=== PATIENT | male | born 1990 | race Caucasian/White ===

== ENCOUNTER 2019-09-02 18:11 | Emergency (ER) | payer OTHER ==
[~2019-09-02] VITALS: Ht 177.8 cm; Wt 72.6 kg
--- NOTE | 2019-09-02 18:20 | NUR ---
hitesh, from home, c/o headache x 12 hrs. Patient a/ox4, breathing even and unlabored, no sob noted, needs attended, kept comfortable.
--- NOTE | 2019-09-02 18:45 | NUR ---
PT IV LINE ESTABLISHED BLOOD DRAWN AND SENT TO LAB.
[2019-09-02] MEDS ORDERED: diphenhydrAMINE HCL 50 MG/ML VIAL ONE (18:47)
[2019-09-02] MEDS ORDERED: METOCLOPRAMIDE HCL 10 MG/2 ML VIAL ONE (18:47)
[2019-09-02 18:52] LABS: BASOPHILS % (AUTO) 0.5 % (0.0-2.0); EOSINOPHILS % (AUTO) 2.1 % (0.0-6.0); HEMATOCRIT 47 % (39-51); LYMPHOCYTES # (AUTO) 1.7 /CMM (0.8-4.8); LYMPHOCYTES % (AUTO) 24.8 % (20.0-44.0); MEAN CORPUSCULAR HGB CONC 34 g/dl (31.0-36.0); MEAN CORPUSCULAR VOLUME 88 fL (80-96); MONOCYTES # (AUTO) 0.5 /CMM (0.1-1.30); MONOCYTES % (AUTO) 7.7 % (2.0-12.0); NEUTROPHILS # (AUTO) 4.6 /CMM (1.8-8.9); NEUTROPHILS % (AUTO) 64.9 % (43.0-81.0); PLATELET COUNT (AUTO) 213 /CMM (150-450); RED BLOOD CELL COUNT(AUTO) 5.33 MIL/uL (4.5-6.0)
[2019-09-02 18:59] LABS: CREATININE 0.9 mg/dL (0.6-1.3); POTASSIUM 3.8 mmol/L (3.5-5.1)
[2019-09-02] MEDS ORDERED: diphenhydrAMINE HCL 50 MG/ML VIAL IV ONE (19:00)
[2019-09-02] MEDS ORDERED: METOCLOPRAMIDE HCL 10 MG/2 ML VIAL IV ONE (19:00)
[2019-09-02] MEDS ORDERED: IV NS 0.9% 1,000 ML BAG IV ONE (19:00)
--- NOTE | 2019-09-02 21:01 | NUR ---
IV removed. Catheter intact and site benign. Pressure and 4x4 applied to site. No bleeding noted.
--- NOTE | 2019-09-02 21:11 | NUR ---
Patient discharged to home in stable condition. Written and verbal after care instructions given. Patient verbalizes understanding of instruction. Pt ambulated with steady gait, vss.
[2019-09-02 21:12] VITALS: BP 129/81
== END 2019-09-02 21:12 | disposition home or self-care (01) ==
LOC: ER 18:17
DX: R51 Headache (principal)
CPT/HCPCS: 36415; 70450; 80048; 85025; 96374; 96375; 99284; A4216; J1200; J2765; J7030

== ENCOUNTER 2019-09-23 17:30 | Emergency (ER) | payer OTHER ==
[~2019-09-23] VITALS: Ht 172.7 cm; Wt 83.9 kg
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
--- NOTE | 2019-09-23 18:17 | NUR ---
PT SEEN AND EXAMINED BY JOSEFINA RAYMUNDO.
[2019-09-23] MEDS ORDERED: KETOROLAC TROMETHAMINE INJ 30 MG/ML VIAL ONE (18:26)
[2019-09-23] MEDS ORDERED: ACETAMINOPHEN ES 500 MG TABLET ONE (18:27)
[2019-09-23] MEDS ORDERED: LIDOCAINE 5% (PATCH) 1 EA PATCH TP SCH (18:30)
[2019-09-23] MEDS ORDERED: KETOROLAC TROMETHAMINE INJ 60 MG/2 ML VIAL IM ONE (18:30)
[2019-09-23] MEDS ORDERED: ACETAMINOPHEN 325 MG TABLET PO ONE (18:30)
--- NOTE | 2019-09-23 18:43 | NUR ---
Patient discharged to home in stable condition. Written and verbal after care instructions given. Patient verbalizes understanding of instruction.
[2019-09-23 18:44] VITALS: BP 118/68
== END 2019-09-23 18:44 | disposition home or self-care (01) ==
LOC: ER 17:31
DX: M62.830 Muscle spasm of back (principal); G89.29 Other chronic pain; F20.9 Schizophrenia, unspecified; W06.XXXA Fall from bed, initial encounter; Y93.89 Activity, other specified; Y92.89 Other specified places as the place of occurrence of the external cause; Y99.8 Other external cause status
CPT/HCPCS: 96372; 99283; J1885

== ENCOUNTER 2019-10-18 18:10 | Emergency (ER) | payer OTHER ==
[~2019-10-18] VITALS: Ht 170.2 cm; Wt 64.4 kg
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
--- NOTE | 2019-10-18 18:18 | NUR ---
SEEN AND EXAMINED BY EBER PACHECO
--- NOTE | 2019-10-18 18:34 | NUR ---
URINE SPECIMEN COLLECTED AND SENT TO LAB.
[2019-10-18] MEDS ORDERED: ACETAMINOPHEN ES 500 MG TABLET ONE (18:36)
[2019-10-18 18:39] LABS: APPEARANCE,URINE Clear (CLEAR); BILIRUBIN,URINE Negative (NEGATIVE); BLOOD, URINE Negative Ery/uL (NEGATIVE); COLOR,URINE Yellow (YELLOW); KETONES,URINE Negative (NEGATIVE); LEUKOCYTE ESTERASE ,URINE Negative (NEGATIVE); NITRITE, URINE Negative (NEGATIVE); PH,URINE 7.5 (5.0-8.0); PROTEIN,URINE Negative (NEGATIVE); UGLUCOSE Negative (NEGATIVE); UROBILINOGEN,URINE 0.2 EU/dL (0.2)
--- NOTE | 2019-10-18 18:45 | NUR ---
IV LINE ESTABLISHED BLOOD DRAWN AND SENT TO LAB.
[2019-10-18] MEDS ORDERED: DIPHENOXYLATE HCL/ATROP SULF 1 UDTAB TABLET ONE (18:50)
[2019-10-18 18:57] LABS: BASOPHILS % (AUTO) 0.6 % (0.0-2.0); EOSINOPHILS % (AUTO) 1.1 % (0.0-6.0); HEMATOCRIT 45 % (39-51); HEMOGLOBIN 15.7 g/dL (13.5-17.5); LYMPHOCYTES # (AUTO) 1.8 /CMM (0.8-4.8); LYMPHOCYTES % (AUTO) 27.4 % (20.0-44.0); MEAN CORPUSCULAR HGB CONC 35 g/dl (31.0-36.0); MEAN CORPUSCULAR VOLUME 89 fL (80-96); MONOCYTES # (AUTO) 0.7 /CMM (0.1-1.30); NEUTROPHILS # (AUTO) 3.9 /CMM (1.8-8.9); NEUTROPHILS % (AUTO) 59.9 % (43.0-81.0); PLATELET COUNT (AUTO) 230 /CMM (150-450); RED BLOOD CELL COUNT(AUTO) 5.07 MIL/uL (4.5-6.0); WHITE BLOOD COUNT (AUTO) 6.5 K/uL (4.3-11.0)
[2019-10-18] MEDS ORDERED: ACETAMINOPHEN ES 500 MG TABLET PO ONE (19:00)
[2019-10-18] MEDS ORDERED: DIPHENOXYLATE HCL/ATROP SULF 1 UDTAB TABLET PO ONE (19:00)
[2019-10-18] MEDS ORDERED: IV NS 0.9% 1,000 ML BAG IV ONE (19:00)
[2019-10-18 19:06] LABS: CALCIUM, SERUM 8.9 mg/dL (8.5-10.1); POTASSIUM 3.5 mmol/L (3.5-5.1)
[2019-10-18 19:12] LABS: ALBUMIN 4.1 g/dL (3.4-5.0); BILIRUBIN,TOTAL 0.6 mg/dL (0.2-1.0)
--- NOTE | 2019-10-18 19:20 | NUR ---
TOOK OVER PT CARE. PT AAOX4. PT RESTING IN BED. RR EVEN AND UNLABORED. PLACED ON MONITOR AND PULSE OX. VSS. AWAITING US.
--- NOTE | 2019-10-18 19:24 | NUR ---
US AT BEDSIDE.
--- NOTE | 2019-10-18 19:50 | NUR ---
IV removed. Catheter intact and site benign. Pressure and 4x4 applied to site. No bleeding noted.
--- NOTE | 2019-10-18 19:50 | NUR ---
PA SPEAKING TO PT. PT WILL BE DISCHARGED.
--- NOTE | 2019-10-18 19:58 | NUR ---
Patient discharged to home in stable condition. Written and verbal after care instructions given. Patient verbalizes understanding of instruction and RX. Pt ambulated with steady gait. vss. No acute distress noted.
[2019-10-18 20:04] VITALS: BP 121/71
== END 2019-10-18 20:05 | disposition home or self-care (01) ==
LOC: ER 18:12
DX: K60.2 Anal fissure, unspecified (principal); R10.30 Lower abdominal pain, unspecified; N43.2 Other hydrocele; I86.1 Scrotal varices; R19.7 Diarrhea, unspecified; Z60.2 Problems related to living alone
CPT/HCPCS: 36415; 76870; 80053; 81001; 85025; 96360; 99284; J7030; 81000-TC

== ENCOUNTER 2020-02-04 16:54 | Emergency (ER) | payer OTHER ==
[~2020-02-04] VITALS: Ht 167.6 cm; Wt 62.6 kg
--- NOTE | 2020-02-04 17:00 | NUR ---
ER BED 11 PT BIBRA WITH C/O WEAKNESS. VS CHECKED AWAITING MD COLLAZO.
[2020-02-04] MEDS ORDERED: IV NS 0.9% 1,000 ML BAG IV ONE (17:30)
[2020-02-04 17:36] LABS: BASOPHILS % (AUTO) 0.2 % (0.0-2.0); EOSINOPHILS % (AUTO) 0.6 % (0.0-6.0); HEMATOCRIT 47 % (39-51); HEMOGLOBIN 16.1 g/dL (13.5-17.5); LYMPHOCYTES # (AUTO) 1.4 /CMM (0.8-4.8); LYMPHOCYTES % (AUTO) 17.7 % (20.0-44.0); MEAN CORPUSCULAR HGB CONC 34 g/dl (31.0-36.0); MEAN CORPUSCULAR VOLUME 89 fL (80-96); MONOCYTES # (AUTO) 0.6 /CMM (0.1-1.30); MONOCYTES % (AUTO) 7.4 % (2.0-12.0); NEUTROPHILS # (AUTO) 5.8 /CMM (1.8-8.9); NEUTROPHILS % (AUTO) 74.1 % (43.0-81.0); PLATELET COUNT (AUTO) 228 /CMM (150-450); RED BLOOD CELL COUNT(AUTO) 5.27 MIL/uL (4.5-6.0); WHITE BLOOD COUNT (AUTO) 7.8 K/uL (4.3-11.0)
[2020-02-04 17:56] LABS: ALBUMIN 4.7 g/dL (3.4-5.0); BILIRUBIN,DIRECT 0.2 mg/dL (0.0-0.2); BILIRUBIN,TOTAL 1.2 mg/dL (0.2-1.0); CREATININE 0.9 mg/dL (0.6-1.3)
--- NOTE | 2020-02-04 18:27 | NUR ---
PT WAS PROVIDED WITH A CAM BOOT FOR HIS R LEG AND CANE PER [employer]. TEACHING PROVIDED FOR USE OF CANE AND CAM BOOT WELL CAM BOOT APPLICATION.
--- NOTE | 2020-02-04 18:42 | NUR ---
DC Patient discharged to home in stable condition. Written and verbal after care instructions given. Patient verbalizes understanding of instruction. pt provided with a bus pass. and cane and cam boot. precriptions given.
[2020-02-04 18:46] VITALS: BP 110/77
[2020-02-04 19:40] LABS: CALCIUM, SERUM 9.6 mg/dL (8.5-10.1); POTASSIUM 4.2 mmol/L (3.5-5.1); TOTAL PROTEIN, SERUM 8.1 g/dL (6.4-8.2)
== END 2020-02-04 18:54 | disposition home or self-care (01) ==
LOC: ER 17:22
DX: E16.2 Hypoglycemia, unspecified (principal); R53.1 Weakness; M21.371 Foot drop, right foot; F20.9 Schizophrenia, unspecified; Z60.2 Problems related to living alone
CPT/HCPCS: 36415; 80048; 80076; 85025; 85730; 96360; 99283; J7030

== ENCOUNTER 2020-02-29 01:20 | Emergency (ER) | payer OTHER ==
[~2020-02-29] VITALS: Ht 172.7 cm; Wt 61.2 kg
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
[2020-02-29 02:10] LABS: BASOPHILS # (AUTO) 0.1 /CMM (0.0-0.2); BASOPHILS % (AUTO) 0.9 % (0.0-2.0); EOSINOPHILS % (AUTO) 3.2 % (0.0-6.0); HEMATOCRIT 46 % (39-51); LYMPHOCYTES # (AUTO) 2.6 /CMM (0.8-4.8); LYMPHOCYTES % (AUTO) 42.8 % (20.0-44.0); MEAN CORPUSCULAR HGB CONC 35 g/dl (31.0-36.0); MEAN CORPUSCULAR VOLUME 89 fL (80-96); MONOCYTES # (AUTO) 0.5 /CMM (0.1-1.30); MONOCYTES % (AUTO) 8.4 % (2.0-12.0); NEUTROPHILS # (AUTO) 2.7 /CMM (1.8-8.9); NEUTROPHILS % (AUTO) 44.7 % (43.0-81.0); PLATELET COUNT (AUTO) 240 /CMM (150-450); RED BLOOD CELL COUNT(AUTO) 5.18 MIL/uL (4.5-6.0)
[2020-02-29 02:17] LABS: ALANINE AMINOTRANSFERASE 17 U/L (12-78); ALBUMIN 4.3 g/dL (3.4-5.0); ALCOHOL, BLOOD < 3 mg/dL (0-0); ALKALINE PHOSPHATASE 58 U/L (46-116); ASPARTATE AMINOTRANSFERASE 16 U/L (15-37); BILIRUBIN,DIRECT 0.1 mg/dL (0.0-0.2); BILIRUBIN,TOTAL 0.9 mg/dL (0.2-1.0); CALCIUM, SERUM 8.7 mg/dL (8.5-10.1); CARBON DIOXIDE 27 mmol/L (21-32); CHLORIDE 104 mmol/L (98-107); CREATININE 0.9 mg/dL (0.6-1.3); GLUCOSE 96 mg/dL (74-106); POTASSIUM 3.7 mmol/L (3.5-5.1); SODIUM SERUM 139 mmol/L (136-145); TOTAL PROTEIN, SERUM 7.3 g/dL (6.4-8.2); UREA NITROGEN, BLOOD 15 mg/dL (7-18)
[2020-02-29 02:18] LABS: ACETAMINOPHEN 0 ug/ml (10-30)
[2020-02-29 02:40] LABS: BILIRUBIN,URINE Negative (NEGATIVE); BLOOD, URINE Negative Ery/uL (NEGATIVE); COLOR,URINE YELLOW (YELLOW); LEUKOCYTE ESTERASE ,URINE Negative (NEGATIVE); NITRITE, URINE Negative (NEGATIVE); PROTEIN,URINE Negative (NEGATIVE); UGLUCOSE Negative (NEGATIVE)
--- NOTE | 2020-02-29 02:45 | NUR ---
Facesheet and clinicals faxed to [facility].
--- NOTE | 2020-02-29 03:11 | NUR ---
PT IN BED RESTING COMFORTABLE. VSS.
--- NOTE | 2020-02-29 04:30 | NUR ---
PT IN BED, PROVIDED WITH MORE BLANKETS.
--- NOTE | 2020-02-29 04:31 | NUR ---
Call from [facility]. Pt accepted to [facility] by Dr Colón, [address]. # for report [phone]
--- NOTE | 2020-02-29 05:17 | NUR ---
CALLED CALL THE CAR TO ARRANGE TRANSPORTATION TO [facility] .CONF # [id number]
--- NOTE | 2020-02-29 05:24 | NUR ---
ETA OF [facility] : [phone]
--- NOTE | 2020-02-29 07:02 | NUR ---
REPORT GIVEN TO [place] ARMENDARIZ FOR BRETT
--- NOTE | 2020-02-29 08:40 | NUR ---
RECIEVED A CALL FROM [facility]. ETA DELAYED UNTIL 1000.
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
--- NOTE | 2020-02-29 10:37 | NUR ---
Patient discharged to home in stable condition. Written and verbal after care instructions given. Patient verbalizes understanding of instruction.
[2020-02-29 10:38] VITALS: BP 119/62
== END 2020-02-29 10:42 | disposition home or self-care (01) ==
LOC: ER 01:20
DX: R45.851 Suicidal ideations (principal); F20.9 Schizophrenia, unspecified; Z20.828 Contact with and (suspected) exposure to other viral communicable diseases
CPT/HCPCS: 36415; 80048; 80076; 80299; 80307; 80320; 81001; 85025; 87426; 99285; C9803; G0480

== ENCOUNTER 2020-03-10 14:53 | Emergency (ER) | payer OTHER ==
[~2020-03-10] VITALS: Ht 167.6 cm; Wt 60.3 kg
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
[2020-03-10 17:42] LABS: EOSINOPHILS % (AUTO) 3.1 % (0.0-6.0); HEMATOCRIT 47 % (39-51); HEMOGLOBIN 16.3 g/dL (13.5-17.5); LYMPHOCYTES # (AUTO) 1.6 /CMM (0.8-4.8); LYMPHOCYTES % (AUTO) 38.5 % (20.0-44.0); MEAN CORPUSCULAR HGB CONC 35 g/dl (31.0-36.0); MEAN CORPUSCULAR VOLUME 90 fL (80-96); MONOCYTES # (AUTO) 0.4 /CMM (0.1-1.30); MONOCYTES % (AUTO) 9.5 % (2.0-12.0); NEUTROPHILS # (AUTO) 1.9 /CMM (1.8-8.9); NEUTROPHILS % (AUTO) 47.9 % (43.0-81.0); PLATELET COUNT (AUTO) 219 /CMM (150-450); RED BLOOD CELL COUNT(AUTO) 5.24 MIL/uL (4.5-6.0); WHITE BLOOD COUNT (AUTO) 4.1 K/uL (4.3-11.0)
[2020-03-10 17:56] LABS: CALCIUM, SERUM 9.4 mg/dL (8.5-10.1); CREATININE 0.8 mg/dL (0.6-1.3)
--- NOTE | 2020-03-10 18:02 | NUR ---
16 FR hernandez catheter inserted per sterile protocal. Immediate output 100 ML of urine, color YELLOW, clarity CLEAR Addendum: 03/10/20 at 1834 by CORTES correction: Straight catheter inserted, not hernandez catheter.
[2020-03-10 18:07] LABS: BILIRUBIN,URINE Negative (NEGATIVE); BLOOD, URINE Small Ery/uL (NEGATIVE); COLOR,URINE YELLOW (YELLOW); LEUKOCYTE ESTERASE ,URINE Negative (NEGATIVE); NITRITE, URINE Negative (NEGATIVE); PROTEIN,URINE Negative (NEGATIVE); UGLUCOSE Negative (NEGATIVE); UROBILINOGEN,URINE 0.2 EU/dL (0.2)
[2020-03-10 18:12] LABS: BACTERIA,URINE Rare /HPF (None Seen); SQUAMOUS EPITHELIAL CELL,UR Few /HPF (None Seen); WBC,URINE NONE SEEN /HPF (0-3)
--- NOTE | 2020-03-10 18:35 | NUR ---
PATIENT A/OX4, BREATHING EVEN AND UNLABORED, AMBULATORY WITH STEADY GAIT. Patient discharged to home in stable condition. Written and verbal after care instructions given. Patient verbalizes understanding of instruction.
[2020-03-10 18:36] VITALS: BP 137/86
== END 2020-03-10 18:37 | disposition home or self-care (01) ==
LOC: ER 14:56
DX: M21.371 Foot drop, right foot (principal); R53.1 Weakness; F20.9 Schizophrenia, unspecified; F31.9 Bipolar disorder, unspecified; Z98.890 Other specified postprocedural states
CPT/HCPCS: 36415; 80048-TC; 81001; 85025-TC

== ENCOUNTER 2020-06-12 11:47 | Emergency (ER) | payer OTHER ==
[~2020-06-12] VITALS: Ht 167.6 cm; Wt 61.2 kg
[2020-06-12 11:50] VITALS: BP 120/80
--- NOTE | 2020-06-12 11:50 | NUR ---
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 STATES FEELING ANXIOUS. KEPT SAFE, WARM AND COMFORTABLE. AWAITING MD COLLAZO
--- NOTE | 2020-06-12 11:54 | NUR ---
DR CHE AT BEDSIDE
--- NOTE | 2020-06-12 12:13 | NUR ---
Patient eloped from facility. ER MD notified.
== END 2020-06-12 12:17 | disposition left against medical advice (07) ==
LOC: ER 11:50
DX: F31.9 Bipolar disorder, unspecified (principal); F20.9 Schizophrenia, unspecified; Z53.21 Procedure and treatment not carried out due to patient leaving prior to being seen by health care provider

== ENCOUNTER 2020-06-12 12:23 | Emergency (ER) | payer OTHER ==
[~2020-06-12] VITALS: Ht 170.2 cm; Wt 61.2 kg
--- NOTE | 2020-06-12 12:25 | NUR ---
BIB SELF "I WANT HELP FOR MY PSYCH PROBLEMS" DENIES SI/HI, TO ER BED 13, HOOKED TO MONITOR, CHANGED TO HOSP GOWN, WARM BLANKET PROVIDED, PATIENT AAO x 3. AWAITING MD COLLAZO.
[2020-06-12] MEDS ORDERED: NICOTINE PATCH (14MG) 14 MG PATCH.TD24 TD SCH (12:30)
[2020-06-12 12:48] LABS: BASOPHILS # (AUTO) 0.1 /CMM (0.0-0.2); EOSINOPHILS % (AUTO) 1.1 % (0.0-6.0); HEMATOCRIT 47 % (39-51); HEMOGLOBIN 15.8 g/dL (13.5-17.5); LYMPHOCYTES # (AUTO) 1.6 /CMM (0.8-4.8); LYMPHOCYTES % (AUTO) 19.8 % (20.0-44.0); MEAN CORPUSCULAR HGB CONC 34 g/dl (31.0-36.0); MEAN CORPUSCULAR VOLUME 90 fL (80-96); MONOCYTES # (AUTO) 0.7 /CMM (0.1-1.30); MONOCYTES % (AUTO) 9.1 % (2.0-12.0); NEUTROPHILS # (AUTO) 5.6 /CMM (1.8-8.9); PLATELET COUNT (AUTO) 248 /CMM (150-450); WHITE BLOOD COUNT (AUTO) 8.2 K/uL (4.3-11.0)
--- NOTE | 2020-06-12 12:52 | NUR ---
RAPID COVID TEST DONE AND SENT TO LAB
[2020-06-12 12:55] LABS: CALCIUM, SERUM 9.3 mg/dL (8.5-10.1); CARBON DIOXIDE 30 mmol/L (21-32); CHLORIDE 104 mmol/L (98-107); CREATININE 0.9 mg/dL (0.6-1.3); GLUCOSE 96 mg/dL (74-106); POTASSIUM 3.9 mmol/L (3.5-5.1); SODIUM SERUM 143 mmol/L (136-145); UREA NITROGEN, BLOOD 8 mg/dL (7-18)
[2020-06-12 12:56] LABS: BILIRUBIN,URINE Negative (NEGATIVE); COLOR,URINE YELLOW (YELLOW); LEUKOCYTE ESTERASE ,URINE Negative (NEGATIVE); NITRITE, URINE Negative (NEGATIVE); PH,URINE 8.5 (5.0-8.0); PROTEIN,URINE Negative (NEGATIVE); UGLUCOSE Negative (NEGATIVE)
[2020-06-12 13:01] LABS: ALANINE AMINOTRANSFERASE 49 U/L (12-78); ALBUMIN 4.1 g/dL (3.4-5.0); ALCOHOL, BLOOD < 3 mg/dL (0-0); ALKALINE PHOSPHATASE 73 U/L (46-116); ASPARTATE AMINOTRANSFERASE 32 U/L (15-37); BILIRUBIN,DIRECT 0.1 mg/dL (0.0-0.2); BILIRUBIN,TOTAL 0.6 mg/dL (0.2-1.0); TOTAL PROTEIN, SERUM 7.4 g/dL (6.4-8.2)
[2020-06-12 13:02] LABS: ACETAMINOPHEN < 10 ug/ml (10-30)
--- NOTE | 2020-06-12 13:59 | NUR ---
provided w lunch tray. tolerating PO well
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
[2020-06-12] MEDS ORDERED: LORAZEPAM 1 MG TABLET PO ONE (14:30)
[2020-06-12] MEDS ORDERED: LORAZEPAM 1 MG TABLET ONE (14:38)
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
[2020-06-12] MEDS ORDERED: OLANZAPINE 10 MG VIAL IM ONE (15:00)
[2020-06-12] MEDS ORDERED: LORAZEPAM INJ 2 MG/ML VIAL IM ONE (15:00)
--- NOTE | 2020-06-12 15:03 | NUR ---
MONOMER PURIFICATION OPERATOR WILL BE HERE IN 10 MINS.
--- NOTE | 2020-06-12 15:15 | NUR ---
[employer] BUSINESS ATTORNEY AT BEDSIDE
--- NOTE | 2020-06-12 15:20 | NUR ---
PT IS ACCEPTED AT [facility] UNDER DR. MARIE OROURKE FOR REPORT [phone]
--- NOTE | 2020-06-12 15:50 | NUR ---
REPORT GIVEN TO ALEX ARMENDARIZ OF [facility] [place]
--- NOTE | 2020-06-12 15:57 | NUR ---
PATIENT STATES HE DOES NOT WANT TO GO TO [facility]. CLEARED BY [place] CRISIS GRAIN SPOUTER. MADE ALEX ARMENDARIZ AWARE [place] [facility] [place]
--- NOTE | 2020-06-12 16:10 | NUR ---
Patient discharged to home in stable condition. Written and verbal after care instructions given. Patient verbalizes understanding of instruction. All belongings given back to patient, name band removed. In proper clothing upon discharge.
[2020-06-12 16:12] VITALS: BP 114/69
== END 2020-06-12 16:12 | disposition home or self-care (01) ==
LOC: ER 12:24
DX: F31.9 Bipolar disorder, unspecified (principal); F41.9 Anxiety disorder, unspecified; Z20.822 Contact with and (suspected) exposure to COVID-19; F17.210 Nicotine dependence, cigarettes, uncomplicated
CPT/HCPCS: 36415; 80048; 80076; 80299; 80307; 80320; 81003; 85025; 87426; 99283; C9803; G0480

== ENCOUNTER 2020-07-25 13:08 | Emergency (ER) | payer OTHER ==
[~2020-07-25] VITALS: Ht 167.6 cm; Wt 66.2 kg
[2020-07-25 13:16] VITALS: BP 118/70
[2020-07-25] MEDS ORDERED: FAMOTIDINE (20 MG) 20 MG TABLET ONE (14:27)
[2020-07-25] MEDS ORDERED: diphenhydrAMINE HCL 50 MG CAPSULE ONE (14:27)
[2020-07-25] MEDS ORDERED: predniSONE 20 MG TABLET ONE (14:28)
[2020-07-25] MEDS ORDERED: diphenhydrAMINE HCL 25 MG CAPSULE PO ONE (14:30)
[2020-07-25] MEDS ORDERED: predniSONE 10 MG TABLET PO ONE (14:30)
[2020-07-25] MEDS ORDERED: FAMOTIDINE (20 MG) 20 MG TABLET PO ONE (14:30)
[2020-07-25] MEDS ORDERED: PRED20TA PO (14:33)
[2020-07-25] MEDS ORDERED: DIPH25CA83 PO (14:33)
--- NOTE | 2020-07-25 14:45 | NUR ---
Patient discharged to home in stable condition. Written and verbal after care instructions given. Patient verbalizes understanding of instruction.
== END 2020-07-25 14:46 | disposition home or self-care (01) ==
LOC: ER 13:12
DX: L50.9 Urticaria, unspecified (principal); T78.40XA Allergy, unspecified, initial encounter; F20.9 Schizophrenia, unspecified; F32.9 Major depressive disorder, single episode, unspecified; F17.200 Nicotine dependence, unspecified, uncomplicated; Z98.890 Other specified postprocedural states; Z79.899 Other long term (current) drug therapy; X58.XXXA Exposure to other specified factors, initial encounter
CPT/HCPCS: 99284; J7512; Q0163

== ENCOUNTER 2020-12-03 06:23 | Emergency (ER) | payer OTHER ==
[~2020-12-03] VITALS: Ht 167.6 cm; Wt 54.4 kg
[~2020-12-03 06:23] MED LIST: DIPH25CA83 PO; PRED20TA PO
--- NOTE | 2020-12-03 06:31 | NUR ---
PT AAOX4. BIBRA C/O BEING ANXIOUS AND ANGRY. PLACED IN BED 2 ON MONITOR AND PULSE OX. ER MD AT BEDSIDE FOR EVAL. AWAITING ORDERS.
[2020-12-03] MEDS ORDERED: OLANZAPINE 10 MG VIAL IM ONE ×2 (06:34→07:00)
--- NOTE | 2020-12-03 06:45 | NUR ---
BLOOD TAKEN AND SENT TO LAB.
[2020-12-03 07:01] LABS: BASOPHILS # (AUTO) 0.1 K/uL (0.0-0.2); BASOPHILS % (AUTO) 0.7 % (0.0-2.0); EOSINOPHILS % (AUTO) 2.2 % (0.0-6.0); HEMATOCRIT 48 % (39-51); HEMOGLOBIN 16.3 g/dL (13.5-17.5); LYMPHOCYTES # (AUTO) 1.8 K/uL (0.8-4.8); LYMPHOCYTES % (AUTO) 23.8 % (20.0-44.0); MEAN CORPUSCULAR HGB CONC 34 g/dl (31.0-36.0); MEAN CORPUSCULAR VOLUME 90 fL (80-96); MONOCYTES # (AUTO) 0.9 K/uL (0.1-1.30); MONOCYTES % (AUTO) 11.6 % (2.0-12.0); NEUTROPHILS # (AUTO) 4.7 K/uL (1.8-8.9); NEUTROPHILS % (AUTO) 61.7 % (43.0-81.0); PLATELET COUNT (AUTO) 260 K/uL (150-450); RED BLOOD CELL COUNT(AUTO) 5.25 MIL/uL (4.5-6.0); WHITE BLOOD COUNT (AUTO) 7.7 K/uL (4.3-11.0)
[2020-12-03 07:18] LABS: ALANINE AMINOTRANSFERASE 22 U/L (12-78); ALBUMIN 4.4 g/dL (3.4-5.0); ALCOHOL, BLOOD < 3 mg/dL (0-0); ALKALINE PHOSPHATASE 64 U/L (46-116); ASPARTATE AMINOTRANSFERASE 16 U/L (15-37); BILIRUBIN,DIRECT 0.1 mg/dL (0.0-0.2); BILIRUBIN,TOTAL 0.4 mg/dL (0.2-1.0); CALCIUM, SERUM 9.6 mg/dL (8.5-10.1); CARBON DIOXIDE 28 mmol/L (21-32); CHLORIDE 105 mmol/L (98-107); CREATININE 0.9 mg/dL (0.6-1.3); GLUCOSE 104 mg/dL (74-106); SODIUM SERUM 143 mmol/L (136-145); TOTAL PROTEIN, SERUM 7.9 g/dL (6.4-8.2); UREA NITROGEN, BLOOD 17 mg/dL (7-18)
[2020-12-03 07:19] LABS: ACETAMINOPHEN < 10 ug/ml (10-30)
--- NOTE | 2020-12-03 07:32 | NUR ---
THE PATIENT SLEEPING IN BED. RESPONSIVE TO VERBAL STIMULI. RESPIRATION REGULAR AND UNLABORED. IN ROOM AIR. IN NO APPARENT DISTRESS. WILL CONTINUE TO MONITOR THE PATIENT.
--- NOTE | 2020-12-03 08:12 | NUR ---
THE PATIENT HAVING BREAKFAST. TOLERATES PROVIDED FOOD WELL.
[2020-12-03 08:16] LABS: BILIRUBIN,URINE NEGATIVE (NEGATIVE); COLOR,URINE YELLOW (YELLOW); LEUKOCYTE ESTERASE ,URINE NEGATIVE (NEGATIVE); NITRITE, URINE NEGATIVE (NEGATIVE); PROTEIN,URINE NEGATIVE (NEGATIVE); UGLUCOSE NEGATIVE (NEGATIVE); UROBILINOGEN,URINE 0.2 EU/dL (0.2)
--- NOTE | 2020-12-03 09:35 | NUR ---
Patient discharged to home in stable condition. Written and verbal after care instructions given. Patient verbalizes understanding of instruction.
[2020-12-03 09:41] VITALS: BP 132/75
[2020-12-03 09:41] LABS: BACTERIA,URINE Rare /HPF (None Seen); RBC,URINE 0-2 /HPF (0-2); SQUAMOUS EPITHELIAL CELL,UR Rare /HPF (None Seen); WBC,URINE 0-2 /HPF (0-3)
== END 2020-12-03 09:42 | disposition home or self-care (01) ==
LOC: ER 06:25
DX: F41.9 Anxiety disorder, unspecified (principal); F32.9 Major depressive disorder, single episode, unspecified; F20.9 Schizophrenia, unspecified; R45.1 Restlessness and agitation; F17.200 Nicotine dependence, unspecified, uncomplicated; Z98.890 Other specified postprocedural states; Z79.899 Other long term (current) drug therapy
CPT/HCPCS: 36415; 80048; 80076; 80143; 80307; 80320; 81001; 85025; 96372; 99283; J3490; G0480

== ENCOUNTER 2021-01-12 21:26 | Emergency (ER) | payer OTHER ==
[~2021-01-12] VITALS: Ht 172.7 cm; Wt 62.6 kg
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
[2021-01-12] MEDS ORDERED: MORPHINE SULFATE INJ 4 MG/ML DISP.SYRIN ONE (21:52)
[2021-01-12] MEDS ORDERED: ONDANSETRON 4 MG TAB.RAPDIS ONE (21:53)
[2021-01-12] MEDS ORDERED: ONDANSETRON 4 MG TAB.RAPDIS SL ONE (22:00)
[2021-01-12] MEDS ORDERED: MORPHINE SULFATE INJ 2 MG/ML DISP.SYRIN IM ONE (22:00)
--- NOTE | 2021-01-12 22:00 | NUR ---
XRAY AT BEDSIDE
[2021-01-12] MEDS ORDERED: NAPR500T6 PO (22:31)
[2021-01-12] MEDS ORDERED: HYDR-4303 PO (22:31)
--- NOTE | 2021-01-12 22:58 | NUR ---
Patient discharged to home in stable condition. Written and verbal after care instructions given. Patient verbalizes understanding of instruction. Pt ambulatory with a steady gait
[2021-01-12 23:44] VITALS: BP 128/87
== END 2021-01-12 22:51 | disposition home or self-care (01) ==
LOC: ER 21:28
DX: M25.551 Pain in right hip (principal); M54.5 Low back pain; F20.9 Schizophrenia, unspecified; F32.9 Major depressive disorder, single episode, unspecified; F17.200 Nicotine dependence, unspecified, uncomplicated; Z98.890 Other specified postprocedural states; Z88.0 Allergy status to penicillin; Z79.899 Other long term (current) drug therapy; V19.88XA Pedal cyclist (driver) (passenger) injured in other specified transport accidents, initial encounter; Y93.55 Activity, bike riding; Y92.89 Other specified places as the place of occurrence of the external cause; Y99.8 Other external cause status
CPT/HCPCS: 72110; 73502; 73552; 96372; 99284; J2270; Q0162

== ENCOUNTER 2021-02-12 06:44 | Emergency (ER) | payer OTHER ==
[~2021-02-12] VITALS: Ht 172.7 cm; Wt 68.5 kg
[~2021-02-12 06:44] MED LIST changes: +HYDR-4303 PO; +NAPR500T6 PO
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
[2021-02-12] MEDS ORDERED: TDAP [DIPH/PERTUSSIS/TET] 0.5 ML VIAL IM ONE ×2 (06:59→07:00)
[2021-02-12 07:36] VITALS: BP 129/72
== END 2021-02-12 07:37 | disposition home or self-care (01) ==
LOC: ER 06:48
DX: S61.211A Laceration without foreign body of left index finger without damage to nail, initial encounter (principal); S61.215A Laceration without foreign body of left ring finger without damage to nail, initial encounter; F32.9 Major depressive disorder, single episode, unspecified; F20.9 Schizophrenia, unspecified; F17.200 Nicotine dependence, unspecified, uncomplicated; Z98.890 Other specified postprocedural states; Z88.0 Allergy status to penicillin; Z79.899 Other long term (current) drug therapy; W26.8XXA Contact with other sharp object(s), not elsewhere classified, initial encounter; Y93.89 Activity, other specified; Y92.89 Other specified places as the place of occurrence of the external cause; Y99.8 Other external cause status
CPT/HCPCS: 12001; 73140; 90471; 90715; 99283; A6403

== ENCOUNTER 2021-06-01 14:42 | Emergency (ER) | payer OTHER ==
[~2021-06-01] VITALS: Ht 167.6 cm; Wt 63.5 kg
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
--- NOTE | 2021-06-01 15:06 | NUR ---
DR MARQUES AT BEDSIDE
--- NOTE | 2021-06-01 15:18 | NUR ---
Patient discharged to home in stable condition. Written and verbal after care instructions given. Patient verbalizes understanding of instruction.
[2021-06-01 15:19] VITALS: BP 126/74
== END 2021-06-01 15:19 | disposition home or self-care (01) ==
LOC: ER 14:45
DX: S09.90XA Unspecified injury of head, initial encounter (principal); F20.9 Schizophrenia, unspecified; F32.A Depression, unspecified; F12.90 Cannabis use, unspecified, uncomplicated; Z98.890 Other specified postprocedural states; Z88.0 Allergy status to penicillin; Z79.899 Other long term (current) drug therapy; Y08.89XA Assault by other specified means, initial encounter; Y93.89 Activity, other specified; Y92.89 Other specified places as the place of occurrence of the external cause; Y99.8 Other external cause status

== ENCOUNTER 2023-05-14 14:00 | Emergency (ER) | payer OTHER ==
[~2023-05-14] VITALS: Ht 167.6 cm; Wt 61.2 kg
[2023-05-14 15:50] VITALS: BP 141/69; TEMP 98.3; O2SAT 99
[2023-05-14] MEDS ORDERED: IBUP-1955 PO (18:10)
== END 2023-05-14 19:10 | disposition home or self-care (01) ==
LOC: ER 14:12
DX: S63.613A Unspecified sprain of left middle finger, initial encounter (principal); S63.615A Unspecified sprain of left ring finger, initial encounter; F20.9 Schizophrenia, unspecified; F31.9 Bipolar disorder, unspecified; Z88.0 Allergy status to penicillin; W01.0XXA Fall on same level from slipping, tripping and stumbling without subsequent striking against object, initial encounter; Y93.01 Activity, walking, marching and hiking; Y92.89 Other specified places as the place of occurrence of the external cause; Y99.8 Other external cause status
CPT/HCPCS: 73130-TC; J7030; J7040